=== PATIENT | female | born 1995 | race Caucasian/White ===

== ENCOUNTER 2020-02-07 11:11 | Emergency (ER) | payer BC, OTHER ==
[2020-02-07] MEDS ORDERED: Proparacaine 0.5% Ophth Soln 15 ML Bottle EYERT ONE (11:29)
[2020-02-07] MEDS ORDERED: Fluorescein 1 MG Ophth Strip EYERT ONE (11:30)
[2020-02-07] MEDS ORDERED: Ciprofloxacin 0.3% Ophth Soln 5 ML Bottle EYERT SCH (11:49)
--- NOTE | 2020-02-07 11:59 | EDM.PDOC ---
ED HPI GENERAL MEDICAL PROBLEM - General Chief Complaint: Eye Problems Stated Complaint: EYE PAIN Time Seen by Provider: 02/07/20 11:29 Source of Information: Reports: Patient, RN Notes Reviewed History Limitations: Reports: No Limitations - History of Present Illness INITIAL COMMENTS - FREE TEXT/NARRATIVE: Patient is a 24-year-old female who presents to the ED for her right eye pain. Patient notes she went swimming yesterday, so she thought maybe she had some chlorine left over in her eyes, she noted that the pain started after she put her contacts in this morning. This was a burning pain, so she took her contact out to clean it, and then she started developing a sharp pain into the middle of her eye. She notes she is a little bit light sensitive with that eye as well. She states the left eye feels okay. She is not had any fevers chills, cough shortness of breath or any other sick-like symptoms. She is not complaining of any blurred vision or double vision. Right Eye Pain Score (Numeric/FACES): 8 - Related Data Allergies Allergy/AdvReac Type Severity Reaction Status Date / Time Penicillins Allergy Hives Verified 02/07/20 11:20 Home Meds: Home Meds . [No Known Home Meds] 02/07/20 [History] Past Medical History - Infectious Disease History Infectious Disease History: Reports: Chicken Pox Social & Family History - Family History Family Medical History: No Pertinent Family History - Tobacco Use Tobacco Use Status *Q: Current Some Day Tobacco User Years of Tobacco use: 1 Packs/Tins Daily: 0.1 - Caffeine Use Caffeine Use: Reports: None - Recreational Drug Use Recreational Drug Use: No ED ROS GENERAL - Review of Systems Review Of Systems: Comprehensive ROS is negative, except as noted in HPI. ED EXAM GENERAL W FULL EYE - Physical Exam Exam: See Below Exam Limited By: No Limitations General Appearance: Alert, WD/WN, No Apparent Distress Eye Exam: Left Eye: Normal Inspection, Bilateral Eye: Conjunctival Injection, EOMI, PERRL Eyelids: Bilateral: Normal Appearance Conjunctiva & Sclera: Bilateral: Injected Cornea Exam: Right: Corneal Abrasion (there is a small area to the upper right quadrant of cornea), Corneal Ulcer (ring like ulceration around the iris), Examined with Flourescein, Left: Normal Appearance Extraocular Movements: Bilateral: Intact Pupils: Normal Accommodation Pupillary Size: Bilateral: 3 mm Pupillary Reaction: Bilateral: Brisk Respiratory/Chest: No Respiratory Distress, Lungs Clear, Normal Breath Sounds, No Accessory Muscle Use, Chest Non-Tender Cardiovascular: Normal Peripheral Pulses, Regular Rate, Rhythm, No Murmur Extremities: Normal Inspection, Normal Capillary Refill Neurological: Alert, Oriented, Normal Cognition, No Motor/Sensory Deficits Psychiatric: Normal Affect, Normal Mood Skin Exam: Warm, Dry, Intact, Normal Color, No Rash Course - Vital Signs Last Recorded V/S: Last Vital Signs Temp 97.8 F 02/07/20 11:17 Pulse 50 L 02/07/20 11:17 Resp 18 02/07/20 11:17 BP 124/73 02/07/20 11:17 Pulse Ox 100 02/07/20 11:17 - Orders/Labs/Meds Orders: Active Orders 24 hr Category Date Time Status Ciprofloxacin [Ciloxan 0.3% Ophth Soln] Med 02/07/20 11:49 Ordered 1 ml EYERT Q4H Ketorolac [Acular 0.5% Ophth Soln] Med 02/07/20 13:00 Ordered 1 ml EYERT QID Meds: Medications Discontinued Medications Generic Name Dose Route Start Last Admin Trade Name Freq PRN Reason Stop Dose Admin Fluorescein Sodium 1 mg 02/07/20 11:30 02/07/20 11:48 Ful-Ernestina EYERT 02/07/20 11:31 1 mg ONETIME ONE Administration Proparacaine HCl 1 ml 02/07/20 11:29 02/07/20 11:48 Proparacaine 0.5% Ophth Soln EYERT 02/07/20 11:30 1 ml ONETIME ONE Administration - Re-Assessments/Exams Free Text/Narrative Re-Assessment/Exam: 02/07/20 11:58 Patient presents to the ED for her eye complaint. She does have a corneal ulcer due to contact lens. She be started on Cipro drops and ketorolac drops for pain management and have her follow-up with ophthalmology within 1 to 2 days. Departure - Departure Time of Disposition: :58 Disposition: Home, Self-Care 01 Condition: Good Clinical Impression: Corneal ulcer Qualifiers: Laterality: right Qualified Code(s): H16.001 - Unspecified corneal ulcer, right eye - Discharge Information *PRESCRIPTION DRUG MONITORING PROGRAM REVIEWED*: No *COPY OF PRESCRIPTION DRUG MONITORING REPORT IN PATIENT LAURA: No Instructions: Corneal Ulcer, How to Use Eye Drops and Eye Ointments Referrals: PCP,None [Primary Care Provider] - Additional Instructions: You have been evaluated in the ED today for your right eye pain/burning. You were identified to have a corneal ulcer to the right eye. This is likely due to continual wear of your contact lenses. You will need to NOT wear your contacts while the ulcer is being treated with your eye drops. You were given some pain drops for your eye, ketorolac, please instill 2 drops to the affected eye every 4 hours at least for the next 24 hours. You may use this up to 2-3 days if needed. Please use the Ciprofloxacin eye drops, 1-2 drops into your right eye Q4H while awake for the next 7 days. Recommend that you follow up with optometry BECCA (within the next 1-2 days) for a more thorough evaluation and to make sure that everything is healing appropriately. You will have to call around and schedule yourself an appointment with the next available provider if you do not already have a current eye doctor. Please return to the ED if your symptoms should change or worsen. Sepsis Event Note (ED) - Evaluation Sepsis Screening Result: No Definite Risk - Focused Exam Vital Signs: Vital Signs Temp Pulse Resp BP Pulse Ox 02/07/20 11:17 97.8 F 50 L 18 124/73 100 - My Orders Last 24 Hours: My Active Orders 02/07/20 11:49 Ciprofloxacin [Ciloxan 0.3% Ophth Soln] 1 ml EYERT Q4H 02/07/20 13:00 Ketorolac [Acular 0.5% Ophth Soln] 1 ml EYERT QID - Assessment/Plan Last 24 Hours: My Active Orders 02/07/20 11:49 Ciprofloxacin [Ciloxan 0.3% Ophth Soln] 1 ml EYERT Q4H 02/07/20 13:00 Ketorolac [Acular 0.5% Ophth Soln] 1 ml EYERT QID
[2020-02-07] MEDS ORDERED: Ketorolac 0.5% Ophth Soln 5 ML Bottle EYERT SCH (13:00)
== END 2020-02-07 12:28 | disposition home or self-care (01) ==
LOC: JD.ED 11:11
DX: H16.001 Unspecified corneal ulcer, right eye (principal); F17.210 Nicotine dependence, cigarettes, uncomplicated; Z88.0 Allergy status to penicillin
CPT/HCPCS: 99283; A9270